=== PATIENT | female | born 1945 | race Two or more races ===

== ENCOUNTER 2017-07-14 15:26 | Inpatient (IN) | payer MEDICARE, OTHER ==
[~2017-07-14] VITALS: Ht 152.4 cm; Wt 41.3 kg
[2017-07-14] VITALS (7 sets, daily range): BP systolic 105–137; BP diastolic 66–94
[2017-07-14] MEDS ORDERED: IV NS 0.9% 1,000 ML BAG IV ONE ×2 (16:00→17:00)
[2017-07-14 16:05] LABS: BASOPHILS # (AUTO) 0.1 /CMM (0.0-0.2); EOSINOPHILS % (AUTO) 0.5 % (0.0-6.0); HEMATOCRIT 26 % (33-45); LYMPHOCYTES # (AUTO) 0.5 /CMM (0.8-4.8); LYMPHOCYTES % (AUTO) 6.1 % (20.0-44.0); MEAN CORPUSCULAR HEMOGLOBIN 30 PG (26.0-33.0); MEAN CORPUSCULAR HGB CONC 35 g/dl (31.0-36.0); MEAN CORPUSCULAR VOLUME 86 fL (82-100); MONOCYTES # (AUTO) 0.4 /CMM (0.1-1.30); MONOCYTES % (AUTO) 4.8 % (2.0-12.0); NEUTROPHILS # (AUTO) 7.2 /CMM (1.8-8.9); NEUTROPHILS % (AUTO) 87.6 % (43.0-81.0); PLATELET COUNT (AUTO) 202 /CMM (150-450); RDW COEFFICIENT OF VARIATION 18.2 (11.5-15.0); RED BLOOD CELL COUNT(AUTO) 3.05 MIL/uL (4.0-5.2); WHITE BLOOD COUNT (AUTO) 8.2 K/uL (4.3-11.0)
[2017-07-14 16:18] LABS: INR 1.2 (0.87-1.13)
[2017-07-14 16:22] LABS: TROPONIN I 0.081 ng/mL (0.00-0.056)
[2017-07-14 16:26] LABS: APPEARANCE,URINE Cloudy (CLEAR); BILIRUBIN,URINE Negative (NEGATIVE); BLOOD, URINE Small Ery/uL (NEGATIVE); COLOR,URINE Yellow (YELLOW); KETONES,URINE Trace (NEGATIVE); LEUKOCYTE ESTERASE ,URINE Large (NEGATIVE); NITRITE, URINE Negative (NEGATIVE); PH,URINE 5.5 (5.0-8.0); PROTEIN,URINE 100 mg/dl (NEGATIVE); UGLUCOSE Negative (NEGATIVE); UROBILINOGEN,URINE 0.2 EU/dL (0.2)
[2017-07-14 16:30] LABS: ALANINE AMINOTRANSFERASE 13 U/L (12-78); ALBUMIN 1.9 g/dL (3.4-5.0); ALKALINE PHOSPHATASE 94 U/L (46-116); ASPARTATE AMINOTRANSFERASE 20 U/L (15-37); BILIRUBIN,DIRECT 0.3 mg/dL (0.0-0.2); BILIRUBIN,TOTAL 0.6 mg/dL (0.2-1.0); CALCIUM, SERUM 8.1 mg/dL (8.5-10.1); CARBON DIOXIDE 30 mmol/L (21-32); CHLORIDE 84 mmol/L (98-107); CREATININE 2.1 mg/dL (0.6-1.3); GLUCOSE 58 mg/dL (74-106); POTASSIUM 3.2 mmol/L (3.5-5.1); SODIUM SERUM 123 mmol/L (136-145); TOTAL PROTEIN, SERUM 5.9 g/dL (6.4-8.2)
[2017-07-14 16:32] LABS: UREA NITROGEN, BLOOD 83 mg/dL (7-18)
[2017-07-14 16:47] LABS: BACTERIA,URINE 3+ /HPF (None Seen); SQUAMOUS EPITHELIAL CELL,UR Moderate /HPF (None Seen); WBC,URINE 51-80 /HPF (0-3); YEAST,URINE Hyphal filaments /HPF (None Seen)
[2017-07-14] MEDS ORDERED: ASPIRIN 300 MG/SUPP.RECT RC ONE ×2 (17:00→17:09)
[2017-07-14] MEDS ORDERED: CEFTRIAXONE 1GM BAG (ER ONLY) 50 ML IV ONE ×2 (17:00→17:09)
[2017-07-14 18:46] LABS: BAND % (MANUAL) 7 % (0.0-5.0); LYMPHOCYTES % (MANUAL) 1 % (16-48); MONOCYTES % (MANUAL) 8 % (0-11.0); NEUTROPHILS % (MANUAL) 84 (42-76)
[2017-07-14] MEDS ORDERED: ONDANSETRON HCL/PF 4 MG/2 ML VIAL IVP PRN (20:00)
[2017-07-14] MEDS ORDERED: IBUPROFEN SUSP 100 MG/5 ML UDC PO PRN (20:00)
[2017-07-14] MEDS ORDERED: Z GUARD REMEDY 2 OZ OINT TP PRN (20:00)
[2017-07-14] MEDS: FLUCONAZOLE IN NS 100 MG in PREMIX 1 EA IV SCH ×2 (20:59)
[2017-07-14] MEDS ORDERED: ENOXAPARIN SODIUM 30 MG/0.3 ML DISP.SYRIN SQ SCH (21:00)
[2017-07-15] VITALS (22 sets, daily range): BP systolic 88–130; BP diastolic 57–78
[2017-07-15 01:19] LABS: ABG BASE EXCESS 0.7 mmol/L; ABG OXYGEN SATURATION 99.4 % (92.0-98.5); ABG PCO2 25.7 mmHg (35.0-45.0); ABG PO2 477.7 mmHg (75.0-100.0); AaDO2 65.7 mmHg; COHb 0.3 % (0.5-1.5); MetHb 0.7 % (0.0-1.5); O2Hb 98.4 % (94.0-97.0); SITE, ABG Right Brachial; VENT MODE, BG 15L NRB
[2017-07-15 05:05] LABS: EOSINOPHILS % (AUTO) 0.1 % (0.0-6.0); HEMATOCRIT 23 % (33-45); HEMOGLOBIN 7.6 g/dL (11.5-14.8); LYMPHOCYTES # (AUTO) 0.2 /CMM (0.8-4.8); LYMPHOCYTES % (AUTO) 2.9 % (20.0-44.0); MEAN CORPUSCULAR HEMOGLOBIN 30 PG (26.0-33.0); MEAN CORPUSCULAR HGB CONC 34 g/dl (31.0-36.0); MEAN CORPUSCULAR VOLUME 88 fL (82-100); MONOCYTES # (AUTO) 0.3 /CMM (0.1-1.30); MONOCYTES % (AUTO) 3.1 % (2.0-12.0); NEUTROPHILS # (AUTO) 8.2 /CMM (1.8-8.9); NEUTROPHILS % (AUTO) 93.9 % (43.0-81.0); PLATELET COUNT (AUTO) 157 /CMM (150-450); RDW COEFFICIENT OF VARIATION 18.9 (11.5-15.0); RED BLOOD CELL COUNT(AUTO) 2.59 MIL/uL (4.0-5.2); WHITE BLOOD COUNT (AUTO) 8.7 K/uL (4.3-11.0)
[2017-07-15 05:32] LABS: CALCIUM, SERUM 7.2 mg/dL (8.5-10.1); CARBON DIOXIDE 23 mmol/L (21-32); CHLORIDE 90 mmol/L (98-107); CREATININE 1.6 mg/dL (0.6-1.3); MAGNESIUM 1.9 mg/dL (1.8-2.4); PHOSPHORUS 4.3 mg/dL (2.5-4.9); SODIUM SERUM 130 mmol/L (136-145); UREA NITROGEN, BLOOD 73 mg/dL (7-18)
[2017-07-15 05:33] LABS: CHOLESTEROL 80 mg/dL (<200); HDL CHOLESTEROL 20 mg/dL (40-60); LDL 52 mg/dL (0-99); THYROID STIMULATING HORMONE 1.061 uIU/mL (0.358-3.74); TRIGLYCERIDES 41 mg/dL (30-150)
[2017-07-15 05:40] LABS: GLUCOSE 47 mg/dL (74-106); POTASSIUM 2.3 mmol/L (3.5-5.1)
[2017-07-15] MEDS ORDERED: DEXTROSE 50%-WATER 50 ML DISP.SYRIN ONE (05:44)
[2017-07-15] MEDS ORDERED: DEXTROSE 50%-WATER 50 ML DISP.SYRIN IVP ONE (06:00)
[2017-07-15] MEDS: POTASSIUM CL. PREMIX PERIPHER. 50 ML IV SCH ×4 (08:43→12:00)
[2017-07-15] MEDS ORDERED: HYDROGEL DRESSING 90 GM TUBE TP PRN (09:30)
[2017-07-15] MEDS ORDERED: IV D5/ 0.9% NACL 1,000 ML IV PRN (09:30)
[2017-07-15] MEDS: HYDROGEL DRESSING 90 GM TUBE TP SCH (09:40)
[2017-07-15] MEDS: PANTOPRAZOLE 40 MG VIAL IV SCH (09:40)
[2017-07-15] MEDS: ACETAMINOPHEN 650 MG/SUPP.RECT RC PRN ×2 (14:47→21:43)
[2017-07-15 15:17] LABS: CALCIUM, SERUM 7.4 mg/dL (8.5-10.1); CARBON DIOXIDE 25 mmol/L (21-32); CHLORIDE 93 mmol/L (98-107); CREATININE 1.7 mg/dL (0.6-1.3); GLUCOSE 112 mg/dL (74-106); POTASSIUM 3.5 mmol/L (3.5-5.1); SODIUM SERUM 129 mmol/L (136-145); UREA NITROGEN, BLOOD 73 mg/dL (7-18)
[2017-07-15] MEDS ORDERED: CEFTRIAXONE 1 G in IV D5W 50 ML IV SCH (17:00)
[2017-07-15 18:47] LABS: APPEARANCE,URINE SL CLOUDY (CLEAR); BILIRUBIN,URINE NEGATIVE (NEGATIVE); BLOOD, URINE 1+ Ery/uL (NEGATIVE); COLOR,URINE YELLOW (YELLOW); KETONES,URINE NEGATIVE (NEGATIVE); LEUKOCYTE ESTERASE ,URINE 3+ (NEGATIVE); NITRITE, URINE NEGATIVE (NEGATIVE); PROTEIN,URINE 1+ mg/dl (NEGATIVE); UGLUCOSE NEGATIVE (NEGATIVE); UROBILINOGEN,URINE 0.2 EU/dL (0.2)
[2017-07-15 18:56] LABS: CREATININE, URINE 25.4 MG/DL (30.0-125.0); URINE TOTAL PROTEIN 56.9 mg/dL (0-11.9)
[2017-07-15 19:09] LABS: BACTERIA,URINE 2+ /HPF (None Seen); SQUAMOUS EPITHELIAL CELL,UR Few /HPF (None Seen); WBC,URINE 51-80 /HPF (0-3); YEAST,URINE Few /HPF (None Seen)
[2017-07-15 20:10] LABS: EOSINOPHIL,URINE Rare
[2017-07-15] MEDS: FLUCONAZOLE IN NS 100 MG in PREMIX 1 EA IV SCH ×2 (20:40)
[2017-07-16] VITALS (7 sets, daily range): BP systolic 104–116; BP diastolic 59–86
[2017-07-16] MEDS: ACETAMINOPHEN 650 MG/SUPP.RECT RC PRN ×3 (05:56→19:10)
[2017-07-16 06:36] LABS: EOSINOPHILS % (AUTO) 0.3 % (0.0-6.0); HEMATOCRIT 23 % (33-45); HEMOGLOBIN 7.7 g/dL (11.5-14.8); LYMPHOCYTES # (AUTO) 0.3 /CMM (0.8-4.8); MEAN CORPUSCULAR HEMOGLOBIN 29 PG (26.0-33.0); MEAN CORPUSCULAR HGB CONC 33 g/dl (31.0-36.0); MEAN CORPUSCULAR VOLUME 89 fL (82-100); MONOCYTES # (AUTO) 0.3 /CMM (0.1-1.30); MONOCYTES % (AUTO) 3.7 % (2.0-12.0); NEUTROPHILS # (AUTO) 6.8 /CMM (1.8-8.9); PLATELET COUNT (AUTO) 141 /CMM (150-450); RED BLOOD CELL COUNT(AUTO) 2.64 MIL/uL (4.0-5.2); WHITE BLOOD COUNT (AUTO) 7.4 K/uL (4.3-11.0)
[2017-07-16 06:47] LABS: ALANINE AMINOTRANSFERASE 8 U/L (12-78); ALKALINE PHOSPHATASE 74 U/L (46-116); ASPARTATE AMINOTRANSFERASE 17 U/L (15-37); BILIRUBIN,TOTAL 0.5 mg/dL (0.2-1.0); CALCIUM, SERUM 7.2 mg/dL (8.5-10.1); CARBON DIOXIDE 22 mmol/L (21-32); CHLORIDE 96 mmol/L (98-107); CREATININE 1.6 mg/dL (0.6-1.3); GLUCOSE 95 mg/dL (74-106); MAGNESIUM 1.7 mg/dL (1.8-2.4); PHOSPHORUS 3.1 mg/dL (2.5-4.9); SODIUM SERUM 132 mmol/L (136-145); TOTAL PROTEIN, SERUM 4.7 g/dL (6.4-8.2); UREA NITROGEN, BLOOD 67 mg/dL (7-18)
[2017-07-16 06:53] LABS: CREATINE KINASE, TOTAL 47 U/L (26-192); PREALBUMIN 7.2 MG/DL (18.0-35.7)
[2017-07-16 07:30] LABS: ALBUMIN 1.4 g/dL (3.4-5.0); POTASSIUM 2.4 mmol/L (3.5-5.1)
[2017-07-16] MEDS: HYDROGEL DRESSING 90 GM TUBE TP SCH (08:32)
[2017-07-16] MEDS: PANTOPRAZOLE 40 MG VIAL IV SCH (08:32)
[2017-07-16] MEDS: Magnesium 1GM/D5W 100ML PREMIX 100 ML IV SCH ×3 (08:57→11:25)
[2017-07-16] MEDS: POTASSIUM CL. PREMIX PERIPHER. 50 ML IV SCH ×6 (09:10→14:53)
[2017-07-16 12:25] LABS: EOSINOPHILS % (AUTO) 0.2 % (0.0-6.0); HEMATOCRIT 26 % (33-45); HEMOGLOBIN 8.6 g/dL (11.5-14.8); LYMPHOCYTES # (AUTO) 0.4 /CMM (0.8-4.8); LYMPHOCYTES % (AUTO) 4.7 % (20.0-44.0); MEAN CORPUSCULAR HEMOGLOBIN 30 PG (26.0-33.0); MEAN CORPUSCULAR HGB CONC 34 g/dl (31.0-36.0); MEAN CORPUSCULAR VOLUME 88 fL (82-100); MONOCYTES # (AUTO) 0.2 /CMM (0.1-1.30); MONOCYTES % (AUTO) 2.6 % (2.0-12.0); NEUTROPHILS # (AUTO) 8.4 /CMM (1.8-8.9); NEUTROPHILS % (AUTO) 92.5 % (43.0-81.0); PLATELET COUNT (AUTO) 135 /CMM (150-450); RDW COEFFICIENT OF VARIATION 18.8 (11.5-15.0); RED BLOOD CELL COUNT(AUTO) 2.91 MIL/uL (4.0-5.2); WHITE BLOOD COUNT (AUTO) 9.1 K/uL (4.3-11.0)
[2017-07-16] MEDS: ACETAMINOPHEN 325 MG TABLET PO PRN (12:39)
[2017-07-16] MEDS: MEROPENEM 500 MG in IV NS 0.9% 50 ML IV SCH (13:44)
[2017-07-16] MEDS: Potassium Chloride 20 MEQ in IV D5/ 0.9% NACL 1,000 ML IV PRN (13:45)
[2017-07-16] MEDS: LACTOBACILLUS RHAMNOSUS GG 1 EACH CAP.SPRINK PO SCH (16:47)
[2017-07-16] MEDS: FLUCONAZOLE IN NS 100 MG in PREMIX 1 EA IV SCH ×2 (21:51)
[2017-07-17] VITALS: BP 123/83
[2017-07-17] MEDS: ACETAMINOPHEN 650 MG/SUPP.RECT RC PRN ×4 (00:11→18:46)
[2017-07-17] MEDS: MEROPENEM 500 MG in IV NS 0.9% 50 ML IV SCH ×2 (00:43→13:00)
[2017-07-17 04:00] VITALS: BP 115/78
[2017-07-17 06:33] LABS: EOSINOPHILS % (AUTO) 0.2 % (0.0-6.0); HEMATOCRIT 25 % (33-45); HEMOGLOBIN 8.3 g/dL (11.5-14.8); LYMPHOCYTES % (AUTO) 3.6 % (20.0-44.0); MEAN CORPUSCULAR HEMOGLOBIN 30 PG (26.0-33.0); MEAN CORPUSCULAR HGB CONC 34 g/dl (31.0-36.0); MEAN CORPUSCULAR VOLUME 87 fL (82-100); MONOCYTES % (AUTO) 4.3 % (2.0-12.0); NEUTROPHILS % (AUTO) 91.9 % (43.0-81.0); PLATELET COUNT (AUTO) 128 /CMM (150-450); RED BLOOD CELL COUNT(AUTO) 2.81 MIL/uL (4.0-5.2); WHITE BLOOD COUNT (AUTO) 8.9 K/uL (4.3-11.0)
[2017-07-17 06:34] LABS: LYMPHOCYTES # (AUTO) 0.3 /CMM (0.8-4.8); MONOCYTES # (AUTO) 0.4 /CMM (0.1-1.30); NEUTROPHILS # (AUTO) 8.1 /CMM (1.8-8.9)
[2017-07-17 07:20] LABS: CALCIUM, SERUM 7.6 mg/dL (8.5-10.1); CARBON DIOXIDE 20 mmol/L (21-32); CHLORIDE 102 mmol/L (98-107); CREATININE 1.5 mg/dL (0.6-1.3); GLUCOSE 86 mg/dL (74-106); MAGNESIUM 2.6 mg/dL (1.8-2.4); POTASSIUM 2.9 mmol/L (3.5-5.1); SODIUM SERUM 136 mmol/L (136-145); UREA NITROGEN, BLOOD 65 mg/dL (7-18)
[2017-07-17 08:00] VITALS: BP 116/73
[2017-07-17] MEDS: PANTOPRAZOLE 40 MG VIAL IV SCH (08:58)
[2017-07-17] MEDS: HYDROGEL DRESSING 90 GM TUBE TP SCH (08:59)
[2017-07-17] MEDS: LACTOBACILLUS RHAMNOSUS GG 1 EACH CAP.SPRINK PO SCH ×2 (08:59→17:11)
[2017-07-17] MEDS: POTASSIUM CL. PREMIX PERIPHER. 50 ML IV SCH ×8 (09:22→17:11)
[2017-07-17] MEDS: Potassium Chloride 20 MEQ in IV D5/ 0.9% NACL 1,000 ML IV PRN (10:24)
[2017-07-17 12:00] VITALS: BP 127/96
[2017-07-17 13:12] LABS: PTH, INTACT 117 pg/mL (15-65)
[2017-07-17 16:00] VITALS: BP 126/98
[2017-07-17 20:00] VITALS: BP 132/92
[2017-07-17] MEDS: FLUCONAZOLE (100 MG) 100 MG TABLET PO SCH (21:30)
[2017-07-18] VITALS: BP 134/91
[2017-07-18] MEDS: MEROPENEM 500 MG in IV NS 0.9% 50 ML IV SCH ×3 (00:11→23:32)
[2017-07-18] MEDS: Potassium Chloride 20 MEQ in IV D5/ 0.9% NACL 1,000 ML IV PRN ×2 (00:11→17:55)
[2017-07-18] MEDS: ACETAMINOPHEN 650 MG/SUPP.RECT RC PRN ×4 (00:21→18:53)
[2017-07-18 04:00] VITALS: BP 136/98
[2017-07-18 06:44] LABS: EOSINOPHILS % (AUTO) 0.6 % (0.0-6.0); HEMATOCRIT 24 % (33-45); LYMPHOCYTES # (AUTO) 0.4 /CMM (0.8-4.8); LYMPHOCYTES % (AUTO) 4.2 % (20.0-44.0); MEAN CORPUSCULAR HEMOGLOBIN 29 PG (26.0-33.0); MEAN CORPUSCULAR HGB CONC 33 g/dl (31.0-36.0); MEAN CORPUSCULAR VOLUME 89 fL (82-100); MONOCYTES # (AUTO) 0.4 /CMM (0.1-1.30); MONOCYTES % (AUTO) 4.3 % (2.0-12.0); NEUTROPHILS # (AUTO) 7.7 /CMM (1.8-8.9); NEUTROPHILS % (AUTO) 90.9 % (43.0-81.0); PLATELET COUNT (AUTO) 117 /CMM (150-450); RDW COEFFICIENT OF VARIATION 19.1 (11.5-15.0); RED BLOOD CELL COUNT(AUTO) 2.74 MIL/uL (4.0-5.2); WHITE BLOOD COUNT (AUTO) 8.5 K/uL (4.3-11.0)
[2017-07-18 07:29] LABS: ALANINE AMINOTRANSFERASE 12 U/L (12-78); ALKALINE PHOSPHATASE 82 U/L (46-116); ASPARTATE AMINOTRANSFERASE 16 U/L (15-37); BILIRUBIN,TOTAL 0.4 mg/dL (0.2-1.0); CALCIUM, SERUM 7.9 mg/dL (8.5-10.1); CARBON DIOXIDE 19 mmol/L (21-32); CHLORIDE 109 mmol/L (98-107); CREATININE 1.4 mg/dL (0.6-1.3); GLUCOSE 96 mg/dL (74-106); MAGNESIUM 2.2 mg/dL (1.8-2.4); POTASSIUM 4.3 mmol/L (3.5-5.1); SODIUM SERUM 141 mmol/L (136-145); TOTAL PROTEIN, SERUM 4.7 g/dL (6.4-8.2); UREA NITROGEN, BLOOD 61 mg/dL (7-18)
[2017-07-18 07:59] LABS: ALBUMIN 1.4 g/dL (3.4-5.0)
[2017-07-18 08:00] VITALS: BP 141/95
[2017-07-18 08:08] LABS: *SPE A/G RATIO 0.7 (0.7-1.7); *SPE ALBUMIN 1.7 g/dL (2.9-4.4); *SPE ALPHA-1-GLOBULIN 0.3 g/dL (0.0-0.4); *SPE ALPHA-2-GLOBULIN 0.5 g/dL (0.4-1.0); *SPE BETA GLOBULIN 0.6 g/dL (0.7-1.3); *SPE GLOBULIN, TOTAL 2.3 g/dL (2.2-3.9); *SPE M-SPIKE Not Observed g/dL (Not Observed); *SPEGAMMA GLOBULIN 0.9 g/dL (0.4-1.8)
[2017-07-18] MEDS: LACTOBACILLUS RHAMNOSUS GG 1 EACH CAP.SPRINK PO SCH ×2 (09:00→16:47)
[2017-07-18] MEDS: PANTOPRAZOLE 40 MG VIAL IV SCH (09:25)
[2017-07-18] MEDS: HYDROGEL DRESSING 90 GM TUBE TP SCH (09:26)
[2017-07-18] MEDS ORDERED: ANESTHESIA TRAY IN PYXIS 1 EA TRAY MC ONE (11:02)
[2017-07-18 12:00] VITALS: BP 131/85
[2017-07-18] MEDS: SUCRALFATE 1 G TABLET PO SCH ×3 (12:00→22:00)
[2017-07-18 16:00] VITALS: BP 148/76
[2017-07-18] MEDS: METOPROLOL TARTRATE INJ 5 MG/5 ML AMPUL IVP SCH ×2 (17:55→23:44)
[2017-07-18] MEDS ORDERED: METOPROLOL TARTRATE 50 MG TABLET PO SCH (18:00)
[2017-07-18 20:00] VITALS: BP 118/92
[2017-07-18] MEDS: FLUCONAZOLE (100 MG) 100 MG TABLET PO SCH (21:00)
[2017-07-19] VITALS (7 sets, daily range): BP systolic 110–125; BP diastolic 71–81
[2017-07-19] MEDS: ACETAMINOPHEN 650 MG/SUPP.RECT RC PRN ×3 (00:37→21:22)
[2017-07-19] MEDS: Potassium Chloride 20 MEQ in IV D5/ 0.9% NACL 1,000 ML IV PRN (05:41)
[2017-07-19] MEDS: METOPROLOL TARTRATE INJ 5 MG/5 ML AMPUL IVP SCH ×4 (05:41→23:46)
[2017-07-19] MEDS: LACTOBACILLUS RHAMNOSUS GG 1 EACH CAP.SPRINK PO SCH ×2 (09:00→17:27)
[2017-07-19] MEDS: SUCRALFATE 1 G TABLET PO SCH ×3 (09:05→17:32)
[2017-07-19] MEDS: HYDROGEL DRESSING 90 GM TUBE TP SCH (09:20)
[2017-07-19] MEDS: PANTOPRAZOLE 40 MG VIAL IV SCH (09:20)
[2017-07-19] MEDS: MEROPENEM 500 MG in IV NS 0.9% 50 ML IV SCH ×2 (12:18→23:52)
[2017-07-19] MEDS: DIGOXIN INJ 0.5 MG/2 ML AMPUL IV SCH ×3 (12:21→23:52)
[2017-07-19] MEDS ORDERED: FLUC100T8 PO (16:06)
[2017-07-19] MEDS ORDERED: METO25TA6 PO (16:06)
[2017-07-19] MEDS ORDERED: SUCR1TAB PO (16:06)
[2017-07-19] MEDS ORDERED: MERO500V IV (16:06)
[2017-07-19] MEDS ORDERED: DIGO250A9 IV (16:06)
[2017-07-19] MEDS ORDERED: IBUP-2267 PO (16:06)
[2017-07-19] MEDS ORDERED: PANT40VI PO (16:06)
[2017-07-19] MEDS ORDERED: DIGO250T PO (16:48)
[2017-07-19] MEDS: IV NS 0.9% 1,000 ML IV PRN (19:16)
[2017-07-19] MEDS: FLUCONAZOLE (100 MG) 100 MG TABLET PO SCH (21:22)
[2017-07-19] MEDS ORDERED: SUCRALFATE 1 G TABLET PO SCH (22:00)
[2017-07-20] VITALS: BP 123/85
[2017-07-20 04:00] VITALS: BP 107/87
[2017-07-20] MEDS: IV NS 0.9% 1,000 ML IV PRN (05:45)
[2017-07-20] MEDS: METOPROLOL TARTRATE INJ 5 MG/5 ML AMPUL IVP SCH (05:45)
[2017-07-20 06:44] LABS: EOSINOPHILS % (AUTO) 0.3 % (0.0-6.0); HEMATOCRIT 30 % (33-45); HEMOGLOBIN 9.8 g/dL (11.5-14.8); LYMPHOCYTES # (AUTO) 0.6 /CMM (0.8-4.8); LYMPHOCYTES % (AUTO) 5.7 % (20.0-44.0); MEAN CORPUSCULAR HEMOGLOBIN 30 PG (26.0-33.0); MEAN CORPUSCULAR HGB CONC 33 g/dl (31.0-36.0); MEAN CORPUSCULAR VOLUME 90 fL (82-100); MONOCYTES # (AUTO) 0.4 /CMM (0.1-1.30); MONOCYTES % (AUTO) 4.5 % (2.0-12.0); NEUTROPHILS # (AUTO) 8.9 /CMM (1.8-8.9); NEUTROPHILS % (AUTO) 89.5 % (43.0-81.0); PLATELET COUNT (AUTO) 114 /CMM (150-450); RED BLOOD CELL COUNT(AUTO) 3.29 MIL/uL (4.0-5.2)
[2017-07-20 06:59] LABS: ALANINE AMINOTRANSFERASE 9 U/L (12-78); ALKALINE PHOSPHATASE 99 U/L (46-116); ASPARTATE AMINOTRANSFERASE 18 U/L (15-37); BILIRUBIN,TOTAL 0.6 mg/dL (0.2-1.0); CALCIUM, SERUM 8.9 mg/dL (8.5-10.1); CARBON DIOXIDE 17 mmol/L (21-32); CHLORIDE 117 mmol/L (98-107); CREATININE 1.2 mg/dL (0.6-1.3); GLUCOSE 70 mg/dL (74-106); MAGNESIUM 1.9 mg/dL (1.8-2.4); PHOSPHORUS 3.6 mg/dL (2.5-4.9); POTASSIUM 4.4 mmol/L (3.5-5.1); SODIUM SERUM 145 mmol/L (136-145); TOTAL PROTEIN, SERUM 4.9 g/dL (6.4-8.2); UREA NITROGEN, BLOOD 53 mg/dL (7-18)
[2017-07-20 07:01] LABS: ALBUMIN 1.3 g/dL (3.4-5.0)
[2017-07-20] MEDS: SUCRALFATE 1 G TABLET PO SCH ×3 (07:30→18:15)
[2017-07-20 08:00] VITALS: BP 111/72
[2017-07-20] MEDS: HYDROGEL DRESSING 90 GM TUBE TP SCH (09:00)
[2017-07-20] MEDS: MEROPENEM 500 MG in IV NS 0.9% 50 ML IV SCH (11:09)
[2017-07-20] MEDS: ACETAMINOPHEN 325 MG TABLET PO PRN (11:10)
[2017-07-20] MEDS: PANTOPRAZOLE 40 MG VIAL IV SCH (11:10)
[2017-07-20] MEDS: LACTOBACILLUS RHAMNOSUS GG 1 EACH CAP.SPRINK PO SCH ×2 (11:10→18:15)
[2017-07-20] MEDS: METOPROLOL TARTRATE 25 MG TABLET PO SCH ×2 (11:11→18:00)
[2017-07-20 18:00] VITALS: BP 93/69
[2017-07-21] MEDS ORDERED: SUCR1ORA4 PO (09:57)
[2017-07-21] MEDS ORDERED: METO25TA6 PO (09:57)
[2017-07-21] MEDS ORDERED: FLUC100T8 PO (09:57)
[2017-07-21] MEDS ORDERED: PANT40TA4 PO (09:57)
[2017-07-21] MEDS ORDERED: DIGO250T PO (09:57)
== END 2017-07-20 18:30 | DRG 871 ==
LOC: ER 15:28 → ICU 17:14 → TELE-TD 07-15 17:57 → TELE1 07-19 16:44 → MEDSG1 07-20 08:32
PROC: 30233N1 Transfusion of Nonautologous Red Blood Cells into Peripheral Vein, Percutaneous Approach (ICD-10-PCS; 2017-07-15)
PROC: 05H533Z Insertion of Infusion Device into Right Subclavian Vein, Percutaneous Approach (ICD-10-PCS; 2017-07-16)
PROC: 0DB68ZX Excision of Stomach, Via Natural or Artificial Opening Endoscopic, Diagnostic (ICD-10-PCS; 2017-07-18)
PROC: 0DB98ZX Excision of Duodenum, Via Natural or Artificial Opening Endoscopic, Diagnostic (ICD-10-PCS; principal; 2017-07-18 11:00)
DX: A41.9 Sepsis, unspecified organism (principal); K26.4 Chronic or unspecified duodenal ulcer with hemorrhage; N17.0 Acute kidney failure with tubular necrosis; I21.A1 Myocardial infarction type 2; E43 Unspecified severe protein-calorie malnutrition; L89.154 Pressure ulcer of sacral region, stage 4; E87.3 Alkalosis; G92 Toxic encephalopathy; D68.59 Other primary thrombophilia; E87.1 Hypo-osmolality and hyponatremia; C64.9 Malignant neoplasm of unspecified kidney, except renal pelvis; N39.0 Urinary tract infection, site not specified; Z68.1 Body mass index [BMI] 19.9 or less, adult; M48.55XA Collapsed vertebra, not elsewhere classified, thoracolumbar region, initial encounter for fracture; I48.91 Unspecified atrial fibrillation; E87.6 Hypokalemia; F03.90 Unspecified dementia, unspecified severity, without behavioral disturbance, psychotic disturbance, mood disturbance, and anxiety; D64.9 Anemia, unspecified; E83.42 Hypomagnesemia; R62.7 Adult failure to thrive; E88.09 Other disorders of plasma-protein metabolism, not elsewhere classified; B96.20 Unspecified Escherichia coli [E. coli] as the cause of diseases classified elsewhere; Z16.12 Extended spectrum beta lactamase (ESBL) resistance; K29.70 Gastritis, unspecified, without bleeding; I05.1 Rheumatic mitral insufficiency; I71.2 Thoracic aortic aneurysm, without rupture; I10 Essential (primary) hypertension; K76.89 Other specified diseases of liver
CPT/HCPCS: 36415; 36569; 36600; 71045-TC; 71250-TC; 76700-TC; 80048-TC; 80053-TC; 80061-TC; 80076-TC; 81000-TC; 82272-TC; 82306; 82550-TC; 82570-TC; 82652; 82803-TC; 82962-TC; 83605-TC; 83615-TC; 83735-TC; 83970; 84100-TC; 84134-TC; 84155; 84155-TC; 84165; 84300-TC; 84443-TC; 84484-TC; 85025-TC; 85730-TC; 86850-TC; 86921-TC; 87040-TC; 87086-TC; 87186-TC; 92526; 92611-TC; 93307-TC; 94799-TC; A4216; A4606; A6248; A6402; A6403; C9113; J0696; J1160; J1450; J1650; J2185; J2704; J3475; J3480; J3490; J7030; J7042; J7050; J7060; J7070; P9016-BL; Z7610

== ENCOUNTER 2017-07-21 09:36 | Inpatient (IN) | payer MEDICARE, OTHER ==
[~2017-07-21] VITALS: Ht 152.4 cm; Wt 48.1 kg
[~2017-07-21 09:36] MED LIST: DIGO250T PO; FLUC100T8 PO; IBUP-2267 PO; MERO500V IV; METO25TA6 PO; PANT40VI PO; SUCR1TAB PO
--- NOTE | 2017-07-21 09:40 | NUR ---
[id number] [facility], LAST SEEN NORMAL LAST NIGHT. PATIENT RECEIVED ALTERED, RESPONSE TO PAIN, PATIENT ON NON REBREATHER SATING 98%. PICCLINE NOTED ON GRIS WITH NOTED BLOOD RETURN. PT WITH INDWELLING CATHETER. SKIN IS WARM TO TOUCH, PT IS AFEBRILE. TACHY ON TELE MONITOR, PENDING MD SHRESTHA
[2017-07-21] MEDS ORDERED: DIGO250T PO (09:57)
[2017-07-21] MEDS ORDERED: FLUC100T8 PO (09:57)
[2017-07-21] MEDS ORDERED: SUCR1ORA4 PO (09:57)
[2017-07-21] MEDS ORDERED: PANT40TA4 PO (09:57)
[2017-07-21] MEDS ORDERED: METO25TA6 PO (09:57)
[2017-07-21] MEDS ORDERED: IV NS 0.9% 500 ML BAG IV ONE (10:00)
[2017-07-21] MEDS ORDERED: DILTIAZEM HCL 50 MG IV IV ONE ×3 (10:00→16:00)
[2017-07-21 10:02] LABS: BASOPHILS % (AUTO) 0.2 % (0.0-2.0); HEMATOCRIT 27 % (33-45); HEMOGLOBIN 8.6 g/dL (11.5-14.8); LYMPHOCYTES # (AUTO) 0.5 /CMM (0.8-4.8); LYMPHOCYTES % (AUTO) 4.9 % (20.0-44.0); MEAN CORPUSCULAR HEMOGLOBIN 29 PG (26.0-33.0); MEAN CORPUSCULAR HGB CONC 32 g/dl (31.0-36.0); MEAN CORPUSCULAR VOLUME 90 fL (82-100); MONOCYTES # (AUTO) 0.2 /CMM (0.1-1.30); MONOCYTES % (AUTO) 2.4 % (2.0-12.0); NEUTROPHILS # (AUTO) 9.3 /CMM (1.8-8.9); NEUTROPHILS % (AUTO) 92.5 % (43.0-81.0); PLATELET COUNT (AUTO) 156 /CMM (150-450); RDW COEFFICIENT OF VARIATION 19.5 (11.5-15.0); RED BLOOD CELL COUNT(AUTO) 2.98 MIL/uL (4.0-5.2)
[2017-07-21 10:09] LABS: CALCIUM, SERUM 8.7 mg/dL (8.5-10.1); CARBON DIOXIDE 16 mmol/L (21-32); CHLORIDE 117 mmol/L (98-107); CREATININE 1.4 mg/dL (0.6-1.3); GLUCOSE 86 mg/dL (74-106); POTASSIUM 4.2 mmol/L (3.5-5.1); SODIUM SERUM 146 mmol/L (136-145); UREA NITROGEN, BLOOD 55 mg/dL (7-18)
[2017-07-21 10:10] LABS: INR 1.12 (0.85-1.15)
[2017-07-21] MEDS ORDERED: DILTIAZEM HCL 25 MG IV ONE (10:10)
[2017-07-21 10:15] LABS: ALANINE AMINOTRANSFERASE 12 U/L (12-78); ALKALINE PHOSPHATASE 102 U/L (46-116); ASPARTATE AMINOTRANSFERASE 23 U/L (15-37); BILIRUBIN,DIRECT 0.3 mg/dL (0.0-0.2); BILIRUBIN,TOTAL 0.6 mg/dL (0.2-1.0); TOTAL PROTEIN, SERUM 4.9 g/dL (6.4-8.2)
--- NOTE | 2017-07-21 10:19 | NUR ---
PATIENT IS ALTERED AND UNABLE TO COOPERATE WITH STROKE ASSESSMENT APPROPRIATELY.
[2017-07-21 10:24] LABS: ALBUMIN 1.4 g/dL (3.4-5.0)
[2017-07-21 10:25] LABS: TROPONIN I 1.425 ng/mL (0.00-0.056)
--- NOTE | 2017-07-21 10:28 | NUR ---
URINE OBTAINED AND SENT TO LAB
[2017-07-21 10:42] LABS: APPEARANCE,URINE Cloudy (CLEAR); BILIRUBIN,URINE SMALL (NEGATIVE); BLOOD, URINE Moderate Ery/uL (NEGATIVE); COLOR,URINE Yellow (YELLOW); KETONES,URINE 15 (NEGATIVE); LEUKOCYTE ESTERASE ,URINE Moderate (NEGATIVE); NITRITE, URINE Negative (NEGATIVE); PROTEIN,URINE 30 mg/dl (NEGATIVE); UGLUCOSE Negative (NEGATIVE); UROBILINOGEN,URINE 0.2 EU/dL (0.2)
[2017-07-21] MEDS ORDERED: DIGOXIN INJ 0.5 MG/2 ML AMPUL ONE (10:47)
[2017-07-21 10:53] LABS: BACTERIA,URINE 1+ /HPF (None Seen); SQUAMOUS EPITHELIAL CELL,UR Few /HPF (None Seen); WBC,URINE 81-100 /HPF (0-3); YEAST,URINE Moderate /HPF (None Seen)
[2017-07-21] MEDS ORDERED: ASPIRIN 300 MG/SUPP.RECT RC ONE ×2 (11:00→11:11)
[2017-07-21] MEDS ORDERED: DIGOXIN INJ 0.5 MG/2 ML AMPUL IV ONE (11:00)
--- NOTE | 2017-07-21 11:24 | NUR ---
[facility] PAGED, BURKE HENDERSON PORTAL DEVELOPER
--- NOTE | 2017-07-21 11:25 | NUR ---
DR. MAHAN INFORMED PATIENT HEART RATE JUMPING TO 160'S ONCE AGAIN. MD ORDERED ANOTHER DOSE OF CARDIZEM 10MG IV. MEDICATION ADMINISTERED VIA GRIS PICC LINE. BP 98/71, HR 161, O2 100%, 16 RESPIRATION PRIOR TO ADMINISTRATION OF MEDICINE.
[2017-07-21] MEDS ORDERED: ACETAMINOPHEN 650 MG/SUPP.RECT RC ONE ×2 (12:00→12:04)
[2017-07-21] MEDS ORDERED: IMIPENEM/CILASTATIN 1,000 MG in IV NS 0.9% 250 ML IV SCH (12:00)
--- NOTE | 2017-07-21 12:32 | NUR ---
GRUPO [id number]
[2017-07-21] MEDS ORDERED: IV 1/2NS 1000 ML 1,000 ML IV PRN (12:52)
[2017-07-21] MEDS ORDERED: MORPHINE SULFATE INJ 2 MG/ML DISP.SYRIN IV PRN (13:00)
[2017-07-21] MEDS: SUCRALFATE 1 G/10 ML UDC PO SCH ×4 (13:00→21:00)
[2017-07-21] MEDS ORDERED: HYDROCODONE/APAP 5/325MG 1 EACH TABLET PO PRN (13:00)
[2017-07-21] MEDS ORDERED: ONDANSETRON HCL/PF 4 MG/2 ML VIAL IVP PRN (13:00)
[2017-07-21] MEDS ORDERED: ACETAMINOPHEN 325 MG TABLET PO PRN (13:00)
[2017-07-21] MEDS ORDERED: MAGNESIUM HYDROXIDE 30 ML UDC PO PRN (13:00)
[2017-07-21] MEDS ORDERED: MAG HYDROX/AL HYDROX/SIMETH 30 ML UDC PO PRN (13:00)
[2017-07-21] MEDS ORDERED: MEROPENEM 500 MG in IV NS 0.9% 50 ML IV SCH (13:00)
[2017-07-21] MEDS ORDERED: MEROPENEM 1,000 MG in IV NS 0.9% 100 ML IV ONE (13:00)
[2017-07-21] MEDS ORDERED: Z GUARD REMEDY 2 OZ OINT TP PRN (13:00)
--- NOTE | 2017-07-21 13:04 | NUR ---
REPORT GIVEN TO DAVID VASQUEZ FOR ADRIANA UPON ADMISSION.
[2017-07-21 13:30] VITALS: BP 100/70
--- NOTE | 2017-07-21 13:30 | NUR ---
INITIAL GRUPO NOTE RECEIVED REPORT FROM CHINO VASQUEZ. PATIENT TRANSPORTED VIA GURNEY. PT STABLE WILL BEGIN ADMISSION.
--- NOTE | 2017-07-21 15:45 | NUR ---
CALLED DR HENDERSON REPORTED HR 155. ORDERED CARDIZEM 10MG IV X1.
[2017-07-21 16:00] VITALS: BP 181/154
[2017-07-21] MEDS ORDERED: MORPHINE SULFATE INJ 4 MG/ML DISP.SYRIN IV PRN ×3 (16:00)
--- NOTE | 2017-07-21 16:00 | NUR ---
CALLED DAUGHTER MICHELE PT IS C/O OF PAIN BP 181/154 ASKED IF I COULD GIVEN MORPHINE. DAUGHTER AGREED. CALLED PHARMACY REGARDING MORPHINE ORDER. PHARMACY CORRECTED ORDER DUE TO VIAL ORDER.
--- NOTE | 2017-07-21 16:12 | NUR ---
PT BP 84/56 POST MORPHINE HR 104 POST CARDIZEM .
[2017-07-21 16:30] VITALS: BP 89/56
--- NOTE | 2017-07-21 17:08 | NUR ---
CALLED AND REPORTED TROP [address] HENDERSON. REPORTED SPOKE TO DR. LOEPZ WHO SAW PATIENT. STATED PT IS TACHY DUE TO BEING SEPTIC. WILL NOT BE ORDERING CARDIZEM DRIP. PT NEEDS FLUIDS.
[2017-07-21] MEDS: METOPROLOL TARTRATE 25 MG TABLET PO SCH ×2 (17:09→23:27)
[2017-07-21] MEDS: IV 1/2NS 1000 ML 1,000 ML IV PRN (17:38)
[2017-07-21] MEDS: ACETAMINOPHEN 650 MG/SUPP.RECT RC PRN (18:23)
--- NOTE | 2017-07-21 19:30 | NUR ---
GRUPO RN INITIAL NOTES RECEIVED PATIENT ASLEEP, RESPONSIVE TO TOUCH. NO S/S OF PAIN OR DISCOMFORT. NO RESPIRATORY DISTRESS NOTED, ON ROOM AIR. SPO2 100%. SKIN WARM AND DRY TO TOUCH. ON TELE MONITOR AFIB UNCONTROLLED 111. F/C PATENT AND INTACT, DRAINING BY GRAVITY. HOB ELEVATED. SIDE RAILS UP AND LOCKED. BED KEPT AT LOWEST POSITION. CALL LIGHT KEPT WITHIN EASY REACH. WILL CONTINUE TO MONITOR.
[2017-07-21 20:00] VITALS: BP 90/53
[2017-07-21] MEDS: MEROPENEM 500 MG in IV NS 0.9% 50 ML IV SCH (22:30)
[2017-07-22] VITALS (7 sets, daily range): BP systolic 82–100; BP diastolic 53–70
[2017-07-22] MEDS: IV 1/2NS 1000 ML 1,000 ML IV PRN ×2 (00:35→08:52)
[2017-07-22] MEDS: METOPROLOL TARTRATE 25 MG TABLET PO SCH ×4 (06:00→23:16)
[2017-07-22 06:46] LABS: BASOPHILS % (AUTO) 0.1 % (0.0-2.0); EOSINOPHILS % (AUTO) 0.1 % (0.0-6.0); HEMATOCRIT 26 % (33-45); HEMOGLOBIN 8.6 g/dL (11.5-14.8); LYMPHOCYTES # (AUTO) 0.5 /CMM (0.8-4.8); LYMPHOCYTES % (AUTO) 4.2 % (20.0-44.0); MEAN CORPUSCULAR HEMOGLOBIN 29 PG (26.0-33.0); MEAN CORPUSCULAR HGB CONC 32 g/dl (31.0-36.0); MEAN CORPUSCULAR VOLUME 91 fL (82-100); MONOCYTES # (AUTO) 0.3 /CMM (0.1-1.30); MONOCYTES % (AUTO) 2.6 % (2.0-12.0); NEUTROPHILS # (AUTO) 11.6 /CMM (1.8-8.9); PLATELET COUNT (AUTO) 137 /CMM (150-450); RDW COEFFICIENT OF VARIATION 19.5 (11.5-15.0); RED BLOOD CELL COUNT(AUTO) 2.91 MIL/uL (4.0-5.2); WHITE BLOOD COUNT (AUTO) 12.4 K/uL (4.3-11.0)
[2017-07-22] MEDS ORDERED: PANTOPRAZOLE 40 MG TABLET.DR PO SCH (07:30)
[2017-07-22] MEDS ORDERED: DEXTROSE 50%-WATER 50 ML DISP.SYRIN ONE (07:44)
--- NOTE | 2017-07-22 07:45 | NUR ---
GRUPO INITIAL NOTE LAB CALLED WITH CRITICAL TO VICKIE VASQUEZ GLUCOSE 47. BS CHECKED 53. CALLED SELENA CHOWDHURY N.P. ORDERED DEXTROSE 50% IVP X1 ORDERED TO RECHECK BS IN 1 HOUR.
--- NOTE | 2017-07-22 07:52 | NUR ---
WOUND CARE CONSULT: PT NOT SEEN YET FOR SKIN ASSESSMENT DUE TO PT INSTABILITY AT THIS TIME PER NURSING STAFF. PER NURSING DOCUMENTATION PT HAS FULL THICKNESS SACRAL ULCER WITH NECROTIC TISSUE, PRESENT ON ADMISSION. PT ON JERI ISOFLEX LOW AIRLOSS BED. RECOMMEND SURGICAL CONSULT. ALL SKIN PROTECTION AND WOUND RECOMMENDATIONS MADE BASED ON NURSING DOCUMENTATION AND ADMISSION PHOTOS. DISCUSSED WITH NURSING STAFF. WILL SEE PRN. IN AGREEMENT WITH PLAN OF CARE. CURRENT RACHEL SCORE IS 13.
[2017-07-22] MEDS ORDERED: HYDROGEL DRESSING 90 GM TUBE TP PRN (08:00)
[2017-07-22] MEDS ORDERED: DEXTROSE 50%-WATER 50 ML DISP.SYRIN IVP ONE (08:00)
[2017-07-22 08:35] LABS: CALCIUM, SERUM 8.2 mg/dL (8.5-10.1); CARBON DIOXIDE 12 mmol/L (21-32); CHLORIDE 115 mmol/L (98-107); CREATININE 1.5 mg/dL (0.6-1.3); GLUCOSE 205 mg/dL (74-106); MAGNESIUM 1.7 mg/dL (1.8-2.4); PHOSPHORUS 4.6 mg/dL (2.5-4.9); POTASSIUM 4.3 mmol/L (3.5-5.1); SODIUM SERUM 143 mmol/L (136-145); UREA NITROGEN, BLOOD 57 mg/dL (7-18)
--- NOTE | 2017-07-22 08:45 | NUR ---
SEMICONDUCTOR PACKAGES PLATEMAKER NOTE [facility] CAME TO DO SWALLOW EVAL ON PATIENT. UNABLE TO PT LETHARGIC.
[2017-07-22] MEDS: HYDROGEL DRESSING 90 GM TUBE TP SCH (08:51)
[2017-07-22] MEDS: SUCRALFATE 1 G/10 ML UDC PO SCH ×4 (08:51→21:00)
[2017-07-22] MEDS: ACETAMINOPHEN 650 MG/SUPP.RECT RC PRN (09:59)
[2017-07-22] MEDS ORDERED: Magnesium 1GM/D5W 100ML PREMIX 100 ML IV SCH (10:06)
[2017-07-22] MEDS: MEROPENEM 500 MG in IV NS 0.9% 50 ML IV SCH ×2 (10:16→23:13)
[2017-07-22] MEDS: Magnesium 1GM/D5W 100ML PREMIX 100 ML IV SCH ×2 (10:16→11:18)
--- NOTE | 2017-07-22 11:09 | NUR ---
JEWELRY INTERNSHIP NOTE DR. JIMENEZ ORDERED STAT CT FOR PATIENT. CALLED RADIOLOGY TO NOTIFY.
[2017-07-22] MEDS ORDERED: IV D5/0.45 NACL 500 ML IV PRN (13:00)
[2017-07-22] MEDS ORDERED: DIGOXIN 0.25 MG TABLET PO SCH (13:14)
[2017-07-22] MEDS: DIGOXIN INJ 0.5 MG/2 ML AMPUL IV SCH (13:40)
[2017-07-22] MEDS: PANTOPRAZOLE 40 MG VIAL IV SCH (13:40)
[2017-07-22] MEDS ORDERED: IV D5/0.45 NACL 1,000 ML IV SCH ×2 (14:00)
[2017-07-22] MEDS: FLUCONAZOLE IN NS 100 MG in PREMIX 1 EA IV SCH ×2 (14:30)
--- NOTE | 2017-07-22 20:15 | NUR ---
SENIOR STAFF ACCOUNTANT NOTE PT IN BED LETHARGIC. NO DISTRESS NOTED. NO S/S OF PAIN NOTED. NOTED B/P IS LOW 85/55. DR AGRAWAL NOTIFIED AND RECEIVED NEW ORDERS, ORDERS NOTED AND CARRIED OUT. HUNGED D5NS AT 100 ML/HR, ALSO GIVEN NS 500 ML BOLUS. FAMILY FRIENDS AT BED SIDE. SIDE RAILS UP X 3 AND CALL LIGHT WITHIN REACH. CONTINUE TO MONITOR HER AFTER THE BOLUS FLUIDS.
[2017-07-22] MEDS ORDERED: IV NS 0.9% 500 ML IV ONE (20:30)
[2017-07-22] MEDS: IV D5/ 0.9% NACL 1,000 ML IV PRN (20:38)
--- NOTE | 2017-07-22 21:00 | NUR ---
SUPERVISOR ASSEMBLING NOTE BLOOD PRESURE CAME UP TO 96/70. PT IN NO DISTRESS OR DISCOMFORT. IVF INFUSING WELL, NO S/S OF INFILTRATION NOTED. CONTINUE TO MONITOR HER.
[2017-07-23] VITALS (7 sets, daily range): BP systolic 78–140; BP diastolic 40–85
--- NOTE | 2017-07-23 | NUR ---
MS VASQUEZ INITIAL NOTES RECEIVED PATIENT . PER REPORT, PATIENT AT 1905. PER HOTEL MAID FAMILY CAN STAY AT BEDSIDE TIL 2130 BEFORE POST MORTEM CARE. Addendum: 07/24/17 at 0007 by VICKIE MCGEE RN WRONG TIME, DOCUMENTED. TIME 07/23/17 1932
[2017-07-23] MEDS: METOPROLOL TARTRATE 25 MG TABLET PO SCH ×3 (05:30→17:10)
--- NOTE | 2017-07-23 06:39 | NUR ---
ASSISTANT PRESS OPERATOR NOTE PT IN BED LETHARGIC, NO CHANGE IN CONDITION. F/C INTACT AND PATENT DRAINING ONLY 50 ML URINE OUTPUT. IVF INFUSING WELL, NO S/S OF INFILTRATION NOTED. NO HYPOTENSION NOTED. REPOSITION HER Q2H, KEPT HER DRY AND CLEAN. ALL NEEDS ATTENDED. SIDE RAILS UP X 3 AND CALL LIGHT WITHIN REACH. WILL ENDORSE TO DAY SHIFT NURSE FOR CONTINUE TO CARE.
[2017-07-23 06:45] LABS: EOSINOPHILS % (AUTO) 0.3 % (0.0-6.0); HEMATOCRIT 25 % (33-45); HEMOGLOBIN 8.1 g/dL (11.5-14.8); LYMPHOCYTES # (AUTO) 0.6 /CMM (0.8-4.8); LYMPHOCYTES % (AUTO) 4.9 % (20.0-44.0); MEAN CORPUSCULAR HEMOGLOBIN 29 PG (26.0-33.0); MEAN CORPUSCULAR HGB CONC 33 g/dl (31.0-36.0); MEAN CORPUSCULAR VOLUME 90 fL (82-100); MONOCYTES # (AUTO) 0.6 /CMM (0.1-1.30); NEUTROPHILS # (AUTO) 11.2 /CMM (1.8-8.9); NEUTROPHILS % (AUTO) 89.8 % (43.0-81.0); PLATELET COUNT (AUTO) 116 /CMM (150-450); RDW COEFFICIENT OF VARIATION 19.8 (11.5-15.0); RED BLOOD CELL COUNT(AUTO) 2.76 MIL/uL (4.0-5.2); WHITE BLOOD COUNT (AUTO) 12.4 K/uL (4.3-11.0)
[2017-07-23 06:56] LABS: ALANINE AMINOTRANSFERASE 14 U/L (12-78); ALKALINE PHOSPHATASE 93 U/L (46-116); ASPARTATE AMINOTRANSFERASE 39 U/L (15-37); BILIRUBIN,TOTAL 0.5 mg/dL (0.2-1.0); CALCIUM, SERUM 8.5 mg/dL (8.5-10.1); CARBON DIOXIDE 13 mmol/L (21-32); CHLORIDE 114 mmol/L (98-107); CREATININE 1.6 mg/dL (0.6-1.3); GLUCOSE 95 mg/dL (74-106); MAGNESIUM 2.2 mg/dL (1.8-2.4); PHOSPHORUS 4.3 mg/dL (2.5-4.9); POTASSIUM 4.3 mmol/L (3.5-5.1); SODIUM SERUM 143 mmol/L (136-145); TOTAL PROTEIN, SERUM 4.6 g/dL (6.4-8.2); UREA NITROGEN, BLOOD 55 mg/dL (7-18)
[2017-07-23 07:10] LABS: ALBUMIN 1.2 g/dL (3.4-5.0)
--- NOTE | 2017-07-23 07:51 | NUR ---
RN OPENING NOTES RECEIVED PT. PT IS LETHARGIC, REMAINS STABLE AND IN BED. NO S/S OF RESP DISTRESS OR SOB. PT DOES NOT APPEAR TO BE IN PAIN AT THIS TIME. F/C IN PLACE. PER RECREATIONAL FACILITIES MOTEL MANAGER REPORT, URINE O/P FOR THE PAST 36 HOURS REMAINS AT 50 ML TEA COLORED URINE. IV ACCESS LOCATED ON RIGHT UPPER ARM, MIDLINE SL. SAFETY MEASURES IN PLACE, CALL LIGHT WITHIN REACH. WILL CONTINUE TO MONITOR.
[2017-07-23] MEDS: SUCRALFATE 1 G/10 ML UDC PO SCH ×3 (08:09→16:11)
[2017-07-23] MEDS: HYDROGEL DRESSING 90 GM TUBE TP SCH (08:09)
--- NOTE | 2017-07-23 08:47 | NUR ---
RN NOTES IV INFUSION OF D5 NS HELD DUE TO LOW URINE OUTPUT OF 50 ML/ 36 HOURS. WILL F/U WITH MD AND CONTINUE TO MONITOR.
[2017-07-23] MEDS ORDERED: CADEXOMER IODINE 40 GM TUBE TP SCH (09:00)
[2017-07-23] MEDS: MEROPENEM 500 MG in IV NS 0.9% 50 ML IV SCH (10:11)
[2017-07-23] MEDS ORDERED: Magnesium 1GM/D5W 100ML PREMIX 100 ML IV SCH (10:46)
[2017-07-23] MEDS: DIGOXIN INJ 0.5 MG/2 ML AMPUL IV SCH (12:00)
[2017-07-23] MEDS: PANTOPRAZOLE 40 MG VIAL IV SCH (12:00)
[2017-07-23] MEDS: FLUCONAZOLE IN NS 100 MG in PREMIX 1 EA IV SCH ×2 (12:00)
[2017-07-23] MEDS: IV D5/ 0.9% NACL 1,000 ML IV PRN (16:33)
--- NOTE | 2017-07-23 17:17 | NUR ---
RN NOTES NG TUBE INSERTED INTO LEFT NARE. CHECKED PLACEMENT AND VERIFIED WITH 2ND NURSE. CXR ORDERED TO VERIFY PLACEMENT. TUBE FEEDING ORDER PLACED OF FIBERSOURCE BEGINNING AT 20 ML/HR, TO BE TITRATED UP 10 ML/DAY IF PT TOLERATES FEEDING, UNTIL MAX OF 50 ML/HR.
[2017-07-23] MEDS ORDERED: FIBERSOURCE HN 1,000 ML BOTTLE GT PRN (18:30)
[2017-07-23] MEDS ORDERED: NOREPINEPHRINE 8 MG in IV D5W 500 ML IV PRN (19:00)
--- NOTE | 2017-07-23 19:38 | NUR ---
RN NOTES CODE BLUE CALLED AT 1830. PT WAS FOUND UNRESPONSIVE AND NOT BREATHING, PULSELESS. SELENA CHOWDHURY NP ARRIVED AND LED THE CODE. DURING CODE, DPOA ASKED TO PLACE PT FULL CODE. PT WAS INTUBATED AT 1841 BY ER NURSE. TOTAL OF 8 EPI GIVEN, PT SHOCKED 3 TIMES AND 2 BICARBS GIVEN THROUGHOUT CODE. CODE TEAM ABLE TO RECOVER PULSE ONCE AT 1848. PT RETURNED TO ASYSTOLE AT 1850. TIME OF CALLED BY SELENA CHOWDHURY AT 1902. POST MORTEM CARE ENDORSED TO LEAD PYTHON DEVELOPER.
--- NOTE | 2017-07-23 20:00 | NUR ---
MS RN NOTES CALLED [facility], SPOKE TO LATA. PATIENT NOT A CANDIDATE.
--- NOTE | 2017-07-23 21:45 | NUR ---
MS RN NOTES POSTMORTEM CARE PROVIDED. PER FAMILY PATIENT WILL BE PICKED UP IN THE MORNING BY THEIR MORTUARY OF CHOICE [facility]. SONG BAUTISTA AGREED. PER MORTUARY BODY WILL BE PICKED UP IN THE MORNING. FAMILY AWARE.
[2017-07-23] MEDS ORDERED: EPINEPHRINE (1:10,000) SYRINGE 1 MG/10 ML DISP.SYRIN IVP ONE (21:59)
[2017-07-23] MEDS ORDERED: SODIUM BICARBONATE SYR 50 MEQ/50 ML DISP.SYRIN IV ONE (21:59)
--- NOTE | 2017-07-23 22:05 | NUR ---
MS RN NOTES PATIENT BROUGHT TO [facility] [place] WITH TWO SECURITY GUARDS. PATIENT WITH NO BELONGINGS.
== END 2017-07-23 22:00 | disposition expired | DRG 871 ==
LOC: ER 09:37 → TELE-TD 12:49 → TELE1 07-22 10:09 → MEDSG1 07-23 10:24
PROVIDERS: ADMIT Nurse Practitioner Acute Care; ATTEND Nurse Practitioner Acute Care
PROC: 0BH18EZ Insertion of Endotracheal Airway into Trachea, Via Natural or Artificial Opening Endoscopic (ICD-10-PCS; principal; 2017-07-23)
DX: A41.9 Sepsis, unspecified organism (principal); G93.41 Metabolic encephalopathy; N17.0 Acute kidney failure with tubular necrosis; I21.A1 Myocardial infarction type 2; E43 Unspecified severe protein-calorie malnutrition; R65.21 Severe sepsis with septic shock; E87.3 Alkalosis; L89.159 Pressure ulcer of sacral region, unspecified stage; E87.4 Mixed disorder of acid-base balance; K26.4 Chronic or unspecified duodenal ulcer with hemorrhage; J18.9 Pneumonia, unspecified organism; R53.2 Functional quadriplegia; D68.59 Other primary thrombophilia; N39.0 Urinary tract infection, site not specified; E87.1 Hypo-osmolality and hyponatremia; N25.81 Secondary hyperparathyroidism of renal origin; B37.49 Other urogenital candidiasis; M84.58XA Pathological fracture in neoplastic disease, other specified site, initial encounter for fracture; C64.9 Malignant neoplasm of unspecified kidney, except renal pelvis; E83.42 Hypomagnesemia; E87.6 Hypokalemia; Z86.73 Personal history of transient ischemic attack (TIA), and cerebral infarction without residual deficits; N94.3 Premenstrual tension syndrome; D63.8 Anemia in other chronic diseases classified elsewhere; K29.70 Gastritis, unspecified, without bleeding; F03.90 Unspecified dementia, unspecified severity, without behavioral disturbance, psychotic disturbance, mood disturbance, and anxiety; I48.91 Unspecified atrial fibrillation; R62.7 Adult failure to thrive; E88.09 Other disorders of plasma-protein metabolism, not elsewhere classified; K76.89 Other specified diseases of liver; I10 Essential (primary) hypertension; B96.89 Other specified bacterial agents as the cause of diseases classified elsewhere; Z68.20 Body mass index [BMI] 20.0-20.9, adult
CPT/HCPCS: 36415; 70450-TC; 71045-TC; 80048-TC; 80053-TC; 80076-TC; 80162-TC; 81000-TC; 82140-TC; 82962-TC; 83605-TC; 83735-TC; 84100-TC; 84134-TC; 84484-TC; 85025-TC; 85730-TC; 87040-TC; 87081-TC; 87086-TC; 95819-TC; A4216; A4606; A6248; C9113; J0171; J0743; J1160; J1450; J2185; J2270; J3475; J3490; J7030; J7040; J7042; J7050; J7060; Z7610